=== PATIENT | female | born 1950 | race Caucasian/White ===

== ENCOUNTER 2017-02-01 05:14 | Day surgery (SDC) | payer OTHER ==
[2017-01-29 11:26] VITALS: BP 113/59
[~2017-02-01] VITALS: Ht 175.3 cm; Wt 60.6 kg
[~2017-02-01 05:14] MED LIST: ALEN70TA5 PO; ANAS1TAB PO; CALC-148 PO; CHOL10003 PO; FLUO10TA PO; LEVO100T5 PO
[2017-02-01] MEDS ORDERED: LACTATED RINGERS 1,000 ML IV SCH (06:02)
[2017-02-01 06:04] VITALS: BP 113/59
[2017-02-01] MEDS ORDERED: BACITRACIN 50,000 UNIT ONE (06:16)
[2017-02-01] MEDS ORDERED: LIDOCAINE 1%, 2ML SQ PRN (06:30)
[2017-02-01] MEDS ORDERED: FENTANYL PF 100 MCG/2ML ONE ×3 (07:02→08:59)
[2017-02-01] MEDS ORDERED: MIDAZOLAM 1 MG/ML, 2ML ONE (07:02)
[2017-02-01] MEDS ORDERED: KETOROLAC 30 MG/1 ML ONE (07:25)
[2017-02-01] MEDS ORDERED: ROCURONIUM 10 MG/ML ONE (07:25)
[2017-02-01] MEDS ORDERED: PROPOFOL 10 MG/ML, 20ML ONE (07:25)
[2017-02-01] MEDS ORDERED: CEFAZOLIN 1,000 MG ONE (07:25)
[2017-02-01] MEDS ORDERED: ONDANSETRON 2MG/ML, 2ML ONE (07:25)
[2017-02-01] MEDS ORDERED: EPHEDRINE 50 MG/ML, 1ML ONE (07:25)
[2017-02-01] MEDS ORDERED: SUCCINYLCHOLINE 20 MG/ML, 10ML ONE (07:25)
[2017-02-01] MEDS ORDERED: DEXAMETHASONE 4 MG/ML, 1ML ONE (07:25)
[2017-02-01] MEDS ORDERED: PROMETHAZINE 25 MG/ML, 1ML IV PRN (08:30)
[2017-02-01] MEDS ORDERED: hydrALAzine 20 MG/ML, 1ML IV PRN (08:30)
[2017-02-01] MEDS ORDERED: OXYcodone 5 MG/5 ML ORAL.SOL UDC PO PRN (08:30)
[2017-02-01] MEDS ORDERED: LABETALOL 5MG/ML, 20ML IV PRN (08:30)
[2017-02-01] MEDS ORDERED: ACETAMINOPHEN 325 MG TABLET PO PRN (08:30)
[2017-02-01] MEDS ORDERED: ALBUTEROL SULFATE 2.5 MG/3 ML NPPB PRN (08:30)
[2017-02-01] MEDS ORDERED: MEPERIDINE/PF 25MG/0.5ML IVPush PRN (08:30)
[2017-02-01] MEDS ORDERED: ONDANSETRON 2MG/ML, 2ML IVPush PRN (08:30)
[2017-02-01] MEDS ORDERED: HYDROmorphone 1 MG/ML, 1ML IV PRN (08:30)
[2017-02-01] MEDS ORDERED: MIDAZOLAM 1 MG/ML, 2ML IV PRN (08:30)
[2017-02-01] MEDS ORDERED: OXYcodone 5 MG/5 ML ORAL.SOL UDC ONE (08:59)
[2017-02-01] MEDS ORDERED: ACETAMINOPHEN 650 MG/20.3 ML UDC ONE (08:59)
[2017-02-01] MEDS: FENTANYL PF 100 MCG/2ML IV PRN ×2 (09:04→09:30)
[2017-02-01] MEDS ORDERED: HYDROmorphone 2 MG/ML, 1ML IVPush PRN (10:30)
== END 2017-02-01 12:55 | disposition home or self-care (01) ==
LOC: OUT 05:14
PROVIDERS: ATTEND Plastic Surgery
DX: N61.1 Abscess of the breast and nipple (principal); Z85.3 Personal history of malignant neoplasm of breast; Z90.13 Acquired absence of bilateral breasts and nipples
CPT/HCPCS: 19357; 93005; C1729; J0330; J0690; J1100; J1885; J2250; J2405; J2704; J3010; J7120

== ENCOUNTER 2017-04-15 11:28 | Day surgery (SDC) | payer OTHER ==
[~2017-04-15] VITALS: Ht 175.3 cm; Wt 59.4 kg
[2017-04-15] MEDS ORDERED: CEFAZOLIN 1,000 MG ONE ×3 (11:31→13:43)
[2017-04-15] MEDS ORDERED: GENTAMICIN 80 MG/2 ML ONE (11:31)
[2017-04-15] MEDS ORDERED: SODIUM BICARBONATE 1 MEQ/ML, 50ML VIAL ONE (11:32)
[2017-04-15] MEDS ORDERED: BACITRACIN 50,000 UNIT ONE (11:32)
[2017-04-15] MEDS ORDERED: LIDOCAINE-MPF 2% ,5ML ONE (11:32)
[2017-04-15 11:50] VITALS: BP 123/63
[2017-04-15 13:30] LABS: HEMATOCRIT 41.7 % (34.6-47.8); HEMOGLOBIN 14.3 g/dL (11.7-16.4); WHITE BLOOD COUNT 4.7 x10^3/uL (3.4-10)
[2017-04-15] MEDS ORDERED: MIDAZOLAM 1 MG/ML, 2ML ONE (13:34)
[2017-04-15] MEDS ORDERED: FENTANYL PF 250 MCG/5ML ONE ×2 (13:35→13:43)
[2017-04-15] MEDS ORDERED: PROPOFOL 10 MG/ML, 20ML ONE ×2 (13:36→13:43)
[2017-04-15] MEDS ORDERED: GLYCOPYRROLATE 0.2MG/1ML, 5ML ONE (13:36)
[2017-04-15] MEDS ORDERED: SUCCINYLCHOLINE 20 MG/ML, 10ML ONE ×2 (13:36→13:43)
[2017-04-15] MEDS ORDERED: DEXAMETHASONE 4 MG/ML, 1ML ONE ×2 (13:36→13:43)
[2017-04-15] MEDS ORDERED: ONDANSETRON 2MG/ML, 2ML ONE ×2 (13:36→13:43)
[2017-04-15] MEDS ORDERED: ROCURONIUM 10 MG/ML,10ML ONE ×2 (13:36→13:43)
[2017-04-15] MEDS ORDERED: NEOSTIGMINE 1 MG/ML, 10ML ONE (13:36)
[2017-04-15] MEDS ORDERED: EPHEDRINE 50 MG/ML, 1ML ONE ×2 (13:43→14:01)
[2017-04-15] MEDS ORDERED: ONDANSETRON 2MG/ML, 2ML IVPush PRN (14:30)
[2017-04-15] MEDS ORDERED: ACETAMINOPHEN 325 MG TABLET PO PRN (14:30)
[2017-04-15] MEDS ORDERED: HYDROmorphone 1 MG/ML, 1ML IV PRN (14:30)
[2017-04-15] MEDS ORDERED: MIDAZOLAM 1 MG/ML, 2ML IV PRN (14:30)
[2017-04-15] MEDS ORDERED: PROMETHAZINE 25 MG/ML, 1ML IV PRN (14:30)
[2017-04-15] MEDS ORDERED: OXYcodone 5 MG/5 ML ORAL.SOL UDC PO PRN (14:30)
[2017-04-15] MEDS ORDERED: HYDROcodone/APAP 7.5-325MG/15ML UDC PO PRN (14:30)
[2017-04-15] MEDS ORDERED: FENTANYL PF 100 MCG/2ML IV PRN (14:30)
[2017-04-15] MEDS ORDERED: MEPERIDINE/PF 50 MG/ML ONE (14:49)
[2017-04-15] MEDS ORDERED: OXYcodone 5 MG/5 ML ORAL.SOL UDC ONE (15:25)
[2017-04-15] MEDS ORDERED: MEPERIDINE/PF 25MG/0.5ML IVPush PRN (15:30)
== END 2017-04-15 17:30 ==
LOC: OUT 11:28
PROVIDERS: ATTEND Plastic Surgery
DX: Z85.3 Personal history of malignant neoplasm of breast (principal); Z90.13 Acquired absence of bilateral breasts and nipples; Z98.890 Other specified postprocedural states; Z87.891 Personal history of nicotine dependence; E03.9 Hypothyroidism, unspecified
CPT/HCPCS: 11970; 36415; 85025; C1729; C1789; J0330; J0690; J1100; J1580; J2175; J2250; J2405; J2704; J2710; J3010; J3490